=== PATIENT | female | born 1975 | race African-American/Black ===

== ENCOUNTER 2017-04-03 20:47 | Emergency (ER) | payer MEDICAID ==
[~2017-04-03] VITALS: Ht 167.6 cm; Wt 85.3 kg
[2017-04-03 21:06] VITALS: BP 133/85
--- NOTE | 2017-04-03 21:29 | NUR ---
PT TAKEN TO BED 12
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
[2017-04-03] MEDS ORDERED: KETOROLAC 30 MG/ML VIAL IM ONE (21:55)
--- NOTE | 2017-04-03 21:55 | NUR ---
PT TAKEN TO XRAY
[2017-04-03] MEDS ORDERED: IBUPROFEN 600 MG TAB PO ONE (22:15)
--- NOTE | 2017-04-03 22:46 | NUR ---
Patient discharged with v/s stable. Written and verbal after care instructions given and explained. Patient verbalized understanding. Ambulatory with steady gait. All questions addressed prior to discharge. Advised to follow up with PMD.
[2017-04-03 22:51] VITALS: BP 125/88
== END 2017-04-03 22:46 | disposition home or self-care (01) ==
LOC: MED 20:47
DX: S16.1XXA Strain of muscle, fascia and tendon at neck level, initial encounter (principal); J45.909 Unspecified asthma, uncomplicated; V43.52XA Car driver injured in collision with other type car in traffic accident, initial encounter; Y93.I9 Activity, other involving external motion; Y92.488 Other paved roadways as the place of occurrence of the external cause; Y99.8 Other external cause status
CPT/HCPCS: 72050; 99284; J1885

== ENCOUNTER 2017-06-27 05:20 | Emergency (ER) | payer MEDICAID ==
[~2017-06-27] VITALS: Ht 167.6 cm; Wt 86.2 kg
[~2017-06-27 05:20] MED LIST: ALBU0.0939; MEDR150S20 IH
[2017-06-27 05:26] VITALS: BP 130/72
--- NOTE | 2017-06-27 05:35 | NUR ---
TO LOBBY, A/W BED, JUTSEN, VSMikie , ERMYanira NOTED
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
--- NOTE | 2017-06-27 07:23 | NUR ---
Pt report given to ARAMIS. Transfer of care at this time.
[2017-06-27 07:36] VITALS: BP 127/78
--- NOTE | 2017-06-27 07:38 | NUR ---
SEEN AND EVALUATED BY MD, DISPO AND MEDICAL DECISION MAKING, DC HOME WITH INSTRUCTIONS AND PRESCRIPTIONS, UNDERSTOOD BY PATIENT WELL, ISABELWGEORGINA.
== END 2017-06-27 07:38 | disposition home or self-care (01) ==
LOC: MED 05:20
DX: M62.830 Muscle spasm of back (principal); J45.909 Unspecified asthma, uncomplicated; Z79.899 Other long term (current) drug therapy
CPT/HCPCS: 99283